=== PATIENT | male | born 1980 | race Caucasian/White ===

== ENCOUNTER 2017-12-12 17:59 | Emergency (ER) | payer OTHER ==
[~2017-12-12] VITALS: Ht 170.2 cm; Wt 68.6 kg
[~2017-12-12 17:59] MED LIST: DPKSR/500 PO
[2017-12-12 18:16] VITALS: TEMP 36.7; Ht 170.2 cm; Wt 68.6 kg
[2017-12-12] MEDS ORDERED: RANITIDINE HCL 150 MG TAB PO STA (18:34)
--- NOTE | 2017-12-12 18:43 | EMERGENCY ROOM VISIT NOTE ---
History Report prepared by Latoya: Tia Connor Under the Supervision of: Dr. Paulino Martinez M.D. 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 His symptoms developed after eating a gas adjuster salad for lunch. He states that after he ate lunch he started to feel really bad and tried drinking Pepsi. He reports shortness of breath, nausea, central chest pain, coughing, and burping. He denies his chest pain radiating anywhere else. The patient describes his pain as burning and rates it as a 5/10 in severity. He has never experienced symptoms like this before. The patient did not take any medications for his symptoms. He denies diarrhea and any recent illness. He has not had a bowel movement today. The patient states that he is feeling much better at this time. Parents agree that he appears better than he did earlier today. 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 A total of 10 systems reviewed and were otherwise negative. Past Medical & Surgical Medical Problems: (1) Acute bronchitis (2) HHT (hereditary hemorrhagic telangiectasia) (3) Unspecified epilepsy without mention of intractable epilepsy Family History No pertinent history stated. Social History Smoking Status: Never Smoker Housing Status: lives with family Current/Historical Medications Scheduled Divalproex Sodium (Depakote Delay Rel), 500 MG PO BID Ranitidine (Zantac), 150 MG PO BID Allergies Coded Allergies: BEE STING (Verified Allergy, Unknown, SWELLING, 12/02/11) Physical Exam Vital Signs Date Time Temp Pulse Resp B/P (MAP) Pulse Ox O2 Delivery O2 Flow Rate FiO2 12/12/17 19:45 77 16 140/86 98 Room Air 12/12/17 19:45 Room Air 12/12/17 18:16 36.7 77 20 139/91 99 Room Air Physical Exam GENERAL: Patient is in no acute distress. HEENT: No acute trauma, normocephalic atraumatic, mucous membranes moist, no nasal congestion, no scleral icterus. NECK: No stridor, no adenopathy, no meningismus, trachea is midline. LUNGS: Clear to auscultation bilaterally, no wheeze, no rhonchi, breath sounds equal. HEART: Without murmurs gallops or rubs, regular rate and rhythm. ABDOMEN: Soft, mildly tender in the epigastrium, bowel sounds positive, no hernias, no peritonitis. EXTREMITIES: No cyanosis or edema, full range of motion of all the joints without pain or difficulty, no signs for acute trauma. NEUROLOGIC: Oriented x 3, no acute motor or sensory deficits, no focal weakness. SKIN: No rash, no jaundice, no diaphoresis. Medical Decision & Procedures ER Provider Diagnostic Interpretation: Radiology results as stated below per my review and radiologist interpretation: CHEST ONE VIEW PORTABLE CLINICAL HISTORY: Atypical chest pain COMPARISON STUDY: 11/08/2014 FINDINGS: The cardiac and mediastinal contours remain stable. There is no focal pulmonary consolidation. There is no failure. There are no pleural effusions. Bilateral embolization coils are visualized.[ IMPRESSION: No active disease in the chest. Electronically signed by: Taran Manley M.D. 12/12/2017 6:51 PM Dictated Date/Time: 12/12/2017 6:51 PM Laboratory Results 12/12/17 18:58 12/12/17 18:58 Test 12/12/17 18:58 12/12/17 20:35 Red Blood Count 5.17 M/uL (4.7-6.1) Mean Corpuscular Volume 90.3 fL (80-100) Mean Corpuscular Hemoglobin 32.5 pg (25-34) Mean Corpuscular Hemoglobin Concent 36.0 g/dl (32-36) RDW Standard Deviation 39.5 fL (36.4-46.3) RDW Coefficient of Variation 12.0 % (11.5-14.5) Mean Platelet Volume 10.8 fL (7.4-10.4) Anion Gap 8.0 mmol/L (3-11) Est Creatinine Clear Calc Drug Dose 97.5 ml/min Estimated GFR () 114.5 Estimated GFR (Non- 98.8 BUN/Creatinine Ratio 8.9 (10-20) Calcium Level 9.4 mg/dl (8.5-10.1) Total Bilirubin 0.7 mg/dl (0.2-1) Aspartate Amino Transf (AST/SGOT) 18 U/L (15-37) Alanine Aminotransferase (ALT/SGPT) 24 U/L (12-78) Alkaline Phosphatase 64 U/L (45-117) Total Protein 7.7 gm/dl (6.4-8.2) Albumin 4.1 gm/dl (3.4-5.0) Globulin 3.6 gm/dl (2.5-4.0) Albumin/Globulin Ratio 1.1 (0.9-2) Lipase 181 U/L (73-393) Valproic Acid (Depakene) Level 69 mcg/ml (50-100) Bedside Troponin I < 0.030 ng/ml (0-0.045) Laboratory results reviewed by me. Medications Administered Medications (Trade) Dose Ordered Sig/Cherri Route Start Time Stop Time Status Last Admin Dose Admin Ranitidine HCl (zANTac TAB) 150 mg NOW STAT PO 12/12/17 18:34 12/12/17 18:36 DC 12/12/17 19:43 150 MG ECG Per My Interpretation Indication: chest pain Rate (beats per minute): 85 Rhythm: sinus with SA Findings: RBBB (incomplete), other (no ST elevation) ED Course 1824: The patient was evaluated in room C8. A complete history and physical exam was performed. 1833: Zantac 150 mg PO 2044: I reassessed the patient at this time. He is feeling better and resting comfortably. I discussed the results and treatment plan with the patient. I answered all pertaining questions that he had. He expressed understanding and verbalized agreement. The patient will be discharged home. Medical Decision Differential diagnoses includes CA, dysrhythmia, food borne or viral illness, gastritis or ulcer, aortic dissection, PE, pneumonia, anemia. There is no leukocytosis or concerning anemia. No significant electrolyte abnormality, kidney failure or hepatitis. No pancreatitis. There is no coagulopathy. EKG shows a sinus rhythm with some sinus arrhythmia, no acute ischemia. Cardiac enzyme testing 2 is not consistent with acute cardiac injury. Chest film does not show mediastinal widening, pneumonia or pneumothorax. Valproic acid level was not toxic. The patient presents with some chest and abdominal discomfort with nausea after eating. Workup here is reassuring and benign. Patient was basically asymptomatic by the time I did my evaluation. This sounds more GI or stomach related than cardiac. The patient was reassured. During his ER stay, he was given oral Zantac. This will be continued for about a week to help calm the stomach. If his symptoms are worsening, he can return for reassessment. Medication Reconcilliation Current Medication List: was personally reviewed by me Blood Pressure Screening Patient's blood pressure: Elevated blood pressure Blood pressure disposition: Elevated BP felt to be situational Impression Primary Impression: Precordial chest pain Scribe Attestation The scribe's documentation has been prepared under my direction and personally reviewed by me in its entirety. I confirm that the note above accurately reflects all work, treatment, procedures, and medical decision making performed by me. Departure Information Dispostion Home / Self-Care Prescriptions Ranitidine (Zantac) 150 Mg Tab 150 MG PO BID for 7 Days, #14 TAB Prov: Paulino Martinez M.D. 12/12/17 Referrals Nathan Knox III, M.D. (PCP) Patient Instructions My [facility] Additional Instructions zantac 2x per day for 1 week bland diet for next 1-2 days return for worsening symptoms heart testing and chest film today were all ok
--- NOTE | 2017-12-12 18:53 | DIAGNOSTIC IMAGING REPORT ---
CHEST ONE VIEW PORTABLE CLINICAL HISTORY: Atypical chest pain COMPARISON STUDY: 11/08/2014 FINDINGS: The cardiac and mediastinal contours remain stable. There is no focal pulmonary consolidation. There is no failure. There are no pleural effusions. Bilateral embolization coils are visualized.[ IMPRESSION: No active disease in the chest. Electronically signed by: Taran Manley M.D. 12/12/2017 6:51 PM Dictated Date/Time: 12/12/2017 6:51 PM
[2017-12-12 19:19] LABS: HEMATOCRIT 46.7 % (42-52); HEMOGLOBIN 16.8 g/dL (14.0-18.0); MEAN CELL VOLUME 90.3 fL (80-100); MEAN CORPUSCULAR HEMOGLOBIN 32.5 pg (25-34); MEAN PLATELET VOLUME 10.8 fL (7.4-10.4); PLATELET COUNT 215 K/uL (130-400); RED CELL DISTRIBUTION WIDTH SD 39.5 fL (36.4-46.3); WHITE BLOOD COUNT 7.46 K/uL (4.8-10.8)
[2017-12-12] MEDS ORDERED: DIVA500T5 PO (19:33)
[2017-12-12 19:38] LABS: ALBUMIN 4.1 gm/dl (3.4-5.0); CALCIUM 9.4 mg/dl (8.5-10.1); CREATININE 0.98 mg/dl (0.60-1.40)
[2017-12-12 19:41] LABS: TOTAL PROTEIN 7.7 gm/dl (6.4-8.2)
[2017-12-12] MEDS ORDERED: RANI150T85 PO (20:41)
[2017-12-12 21:09] VITALS: BP 126/72; PULSE 82; O2SAT 98
== END 2017-12-12 21:10 | disposition home or self-care (01) ==
LOC: C.EDB 18:00 → C.EDC 21:10
DX: R07.2 Precordial pain (principal); Z91.030 Bee allergy status